=== PATIENT | female | born 1955 ===

== ENCOUNTER 2017-11-18 05:20 | Inpatient (IN) ==
[2017-11-18] MEDS ORDERED: FAMOTIDINE 20 MG TABLET PO ONE (06:00)
[2017-11-18] MEDS ORDERED: DIAZEPAM 5 MG TABLET PO ONE (06:00)
[2017-11-18] MEDS ORDERED: FAMOTIDINE 20 MG TABLET ONE (06:16)
[2017-11-18] MEDS ORDERED: ceFAZolin 1,000 MG VIAL ONE (06:16)
[2017-11-18] MEDS ORDERED: VANCOMYCIN 1,000 MG VIAL ONE (06:16)
[2017-11-18] MEDS ORDERED: DIAZEPAM 5 MG TABLET ONE (06:16)
[2017-11-18] MEDS: LACTATED RINGERS 1,000 ML IV SCH (06:47)
[2017-11-18] MEDS ORDERED: ceFAZolin 1,000 MG in SYRINGE 1 EACH IV ONE (07:00)
[2017-11-18] MEDS ORDERED: VANCOMYCIN INJ 1,000 MG in SODIUM CHLORIDE 0.9% 250 ML IV ONE (07:00)
[2017-11-18] MEDS ORDERED: BISACODYL 10 MG SUPP RECTAL PRN (07:14)
[2017-11-18] MEDS ORDERED: NALOXONE 0.4 MG/ML VIAL IV PRN (07:14)
[2017-11-18] MEDS ORDERED: MORPHINE 2 MG/1 ML SYRINGE IV PRN (07:14)
[2017-11-18] MEDS ORDERED: ONDANSETRON 4 MG/2 ML VIAL IV PRN ×2 (07:14→09:08)
[2017-11-18] MEDS ORDERED: diphenhydrAMINE CAP 25 MG CAPSULE PO PRN (07:14)
[2017-11-18] MEDS ORDERED: LACTULOSE 20 GM/30 ML UDCUP PO PRN (07:14)
[2017-11-18] MEDS ORDERED: PROMETHAZINE 25 MG/1 ML VIAL IM PRN (07:14)
[2017-11-18] MEDS ORDERED: TEMAZEPAM 7.5 MG CAPSULE PO PRN (07:14)
[2017-11-18] MEDS ORDERED: TRANEXAMIC ACID 1,000 MG/10 ML VIAL IV ONE (07:37)
[2017-11-18] MEDS ORDERED: ROPIVACAINE 0.5% 30 ML VIAL ONE ×2 (07:41→09:21)
[2017-11-18] MEDS ORDERED: ONDANSETRON 4 MG/2 ML VIAL ONE ×2 (09:01→09:08)
[2017-11-18] MEDS ORDERED: HYDROmorphone 2 MG/1 ML VIAL ONE (09:01)
[2017-11-18] MEDS ORDERED: MORPHINE PCA 30 MG/30 ML SYRINGE IV ONE (09:04)
[2017-11-18] MEDS ORDERED: fentaNYL 100 MCG/2 ML VIAL ONE (09:07)
[2017-11-18] MEDS ORDERED: PROPOFOL 200 MG/20 ML VIAL IV ONE (09:07)
[2017-11-18] MEDS ORDERED: MIDAZOLAM 2 MG/2 ML VIAL ONE (09:07)
[2017-11-18] MEDS ORDERED: SEVOFLURANE 1 UNIT/15 MINUTE INH ONE (09:07)
[2017-11-18] MEDS ORDERED: hydrALAZINE 20 MG/1 ML VIAL ONE (09:07)
[2017-11-18] MEDS ORDERED: ACETAMINOPHEN 1,000 MG/100 ML VIAL IV ONE (09:08)
[2017-11-18] MEDS ORDERED: HYDROmorphone 2 MG/1 ML VIAL IV PRN (09:08)
[2017-11-18] MEDS ORDERED: KETOROLAC 30 MG/1 ML VIAL ONE (09:08)
[2017-11-18] MEDS: MORPHINE PCA 30 MG/30 ML SYRINGE IV SCH (09:20)
[2017-11-18] MEDS ORDERED: LIDOCAINE 50 MG/5 ML SYRINGE ONE ×2 (09:22)
[2017-11-18 13:09] LABS: Basophils % 0.2 % (0.0-0.8); Eosinophils % 0.1 % (0.00-10.9); Hematocrit 36.9 VOL% (35.7-47.0); Immature Granulocytes % 0.7 %; Immature Granulocytes Absolute 0.09 #; Lymphocytes # 1.4 10*3/uL (1.4-4.0); Lymphocytes % 10.7 % (21.3-54.2); Mean Corpuscular HGB Conc 35.2 GM/DL (32-36); Mean Corpuscular Hemoglobin 33 PG (27-34); Mean Corpuscular Volume 92.5 FL (87-102); Monocytes # 0.8 10*3/uL (0.11-0.8); Monocytes % 6.5 % (1.7-12.7); Neutrophils # 10.5 10*3/uL (1.4-7.4); Neutrophils % 81.8 % (38.7-73.9); Platelet Count 203 T/CUMM (130-400); Red Blood Count 3.99 MC/CUMM (3.8-5.5); Red Cell Distribution Width 13.4 % (9.3-17.3); White Blood Count 12.9 T/CUMM (4-12)
[2017-11-18 13:42] LABS: Calcium 8.1 MG/DL (8.5-10.1); Osmolality,Calculated 281.4 MOS/KG (273-304); Potassium 4.4 MMOL/L (3.5-5.1)
[2017-11-18] MEDS: ceFAZolin 2,000 MG in PREMIX 1 EACH IV SCH ×2 (16:41→22:50)
[2017-11-18] MEDS: DOCUSATE SODIUM 100 MG CAPSULE PO SCH ×2 (16:43→21:07)
[2017-11-18] MEDS: FONDAPARINUX 2.5 MG/0.5 ML SYRINGE SUBCUT SCH (18:40)
[2017-11-19 06:27] LABS: Basophils % 0.1 % (0.0-0.8); Eosinophils % 0.2 % (0.00-10.9); Hematocrit 34.5 VOL% (35.7-47.0); Hemoglobin 11.5 GM/DL (12.0-16.0); Immature Granulocytes % 0.6 %; Immature Granulocytes Absolute 0.05 #; Lymphocytes # 1.7 10*3/uL (1.4-4.0); Lymphocytes % 21.5 % (21.3-54.2); Mean Corpuscular HGB Conc 33.3 GM/DL (32-36); Mean Corpuscular Hemoglobin 31 PG (27-34); Mean Corpuscular Volume 93.8 FL (87-102); Mean Platelet Volume 10.7 FL (9.6-12.0); Monocytes % 12.5 % (1.7-12.7); Neutrophils # 5.2 10*3/uL (1.4-7.4); Neutrophils % 65.1 % (38.7-73.9); Platelet Count 177 T/CUMM (130-400); Red Blood Count 3.68 MC/CUMM (3.8-5.5); Red Cell Distribution Width 13.3 % (9.3-17.3)
[2017-11-19] MEDS: LACTATED RINGERS 1,000 ML IV SCH (06:36)
[2017-11-19 06:54] LABS: Calcium 7.9 MG/DL (8.5-10.1); Osmolality,Calculated 279.4 MOS/KG (273-304); Potassium 3.8 MMOL/L (3.5-5.1)
[2017-11-19] MEDS: DOCUSATE SODIUM 100 MG CAPSULE PO SCH ×2 (09:17→20:56)
[2017-11-19] MEDS: MORPHINE PCA 30 MG/30 ML SYRINGE IV SCH ×2 (09:30→19:34)
[2017-11-19] MEDS: FONDAPARINUX 2.5 MG/0.5 ML SYRINGE SUBCUT SCH (17:44)
[2017-11-20] MEDS: LACTATED RINGERS 1,000 ML IV SCH (03:21)
[2017-11-20] MEDS: DOCUSATE SODIUM 100 MG CAPSULE PO SCH ×2 (10:03→20:19)
[2017-11-20] MEDS: FONDAPARINUX 2.5 MG/0.5 ML SYRINGE SUBCUT SCH (17:53)
[2017-11-20] MEDS: MAGNESIUM HYDROXIDE SUSP 30 ML UDCUP PO PRN (20:22)
[2017-11-21] MEDS: DOCUSATE SODIUM 100 MG CAPSULE PO SCH (08:20)
[2017-11-21] MEDS: MAGNESIUM HYDROXIDE SUSP 30 ML UDCUP PO PRN (11:03)
[2017-11-21 11:17] VITALS: BP 133/71
== END 2017-11-21 15:45 | DRG 470 ==
LOC: N.OR 05:20 → N.SDSINP 05:21 → N.3E 07:15 → EDSTATUS 07:30
PROVIDERS: ADMIT Orthopaedic Surgery; ATTEND Orthopaedic Surgery